=== PATIENT | male | born 1970 | race Caucasian/White ===

== ENCOUNTER → 2023-11-18 | Day surgery (SDC) | payer OTHER ==
[2023-11-12 14:48] VITALS: BMI 32.1
[~2023-11-18] MED LIST: PROPOFOL 10 MG/ML 20 ML VIAL IV ONE
[2023-11-18 08:23] VITALS: TEMP 97.2
[2023-11-18] MEDS: IV FLUID CONTINUATION 1,000 ML IV ONE (08:38)
[2023-11-18] MEDS: LACTATED RINGERS 1,000 ML IV SCH (08:39)
--- NOTE | 2023-11-18 09:53 | P.PCN ---
Date of Procedure: 11/18/23 Procedure(s) Performed: BRIEF HISTORY: Patient is a 53-year-old pleasant white male scheduled for an elective colonoscopy as a part of evaluation of positive Cologuard/screening for colon cancer. PROCEDURE PERFORMED: Colonoscopy with snare polypectomy. PREOPERATIVE DIAGNOSIS: Positive Cologuard/screening for colon cancer. IV sedation per Anesthesia. PROCEDURE: After informed consent was obtained, the patient, was brought into the endoscopy unit. IV sedation was administered by Anesthesia under continuous monitoring. Digital rectal examination was normal. Initially the Olympus CF-160 flexible video colonoscope was then inserted in the rectum, gradually advanced into the cecum without any difficulty. Careful examination was performed as the scope was gradually being withdrawn. Ileocecal valve and the appendiceal orifice were visualized and appeared normal. Prep was excellent. Mucosa of the cecum, ascending colon, transverse colon, descending colon, appeared normal. The sigmoid colon there was a 2 cm broad-based polyp removed by snare polypectomy. In the rectosigmoid colon. 2 polyps measuring 1 cm in size removed by snare polypectomy. Moderate sigmoid diverticulosis seen. Rest of the sigmoid colon, and rectum appeared normal. Retroflexion was performed in the rectum and no les ions were seen. The patient tolerated the procedure well. IMPRESSION: 2 cm broad-based proximal sigmoid colon polyp status post polypectomy 1 cm x 2 rectosigmoid polyp status post polypectomy moderate sigmoid diverticulosis RECOMMENDATIONS: Findings of this examination were discussed with the patient as well as his family. He was advised to follow-up with the biopsy results. If the biopsy reveals adenoma he can have repeat colonoscopy in 3 years..
[2023-11-18 10:00] VITALS: RESP 16
[2023-11-18 10:17] VITALS: BP 160/94; PULSE 64
== END ==
LOC: ORWHC2ENDO 07:55
PROVIDERS: ATTEND Internal Medicine Gastroenterology
DX: D12.2 Benign neoplasm of ascending colon (principal); D12.5 Benign neoplasm of sigmoid colon; K63.5 Polyp of colon; K57.30 Diverticulosis of large intestine without perforation or abscess without bleeding; I10 Essential (primary) hypertension; E78.5 Hyperlipidemia, unspecified; F17.200 Nicotine dependence, unspecified, uncomplicated; Z79.899 Other long term (current) drug therapy
CPT/HCPCS: 88305; 45385; J2704; 45380